=== PATIENT | female | born 1990 | race Caucasian/White ===

== ENCOUNTER 2018-06-08 13:48 | Emergency (ER) | payer SELFPAY ==
[2018-06-08 13:49] VITALS: BP 126/73; PULSE 100; RESP 17; TEMP 37.1; O2SAT 98; BMI 25.9
--- NOTE | 2018-06-08 14:30 | CT_ITS ---
STUDY: CT ABDOMEN AND PELVIS WITHOUT CONTRAST REASON FOR EXAM: Female, 28 years old. Right flank pain. RADIATION DOSAGE (If Supplied By Facility): CTDIvol = ( 7.41 ) mGy, DLP = ( 364.52 ) mGycm TECHNIQUE: Transaxial images were obtained from the dome of the diaphragm to the symphysis pubis without oral contrast, and without intravenous contrast. Sagittal and coronal images were reconstructed. Individualized dose optimization techniques were used for this CT. COMPARISON: None. FINDINGS: The visualized lung bases are unremarkable. The visualized portions of the heart are within normal limits. Please note the lack of intravenous contrast limits evaluation of solid visceral organs. Normal liver. Normal gallbladder and extrahepatic biliary system. Normal spleen. Normal pancreas. Normal bilateral adrenal glands. Normal right kidney. There is a nonobstructing 2.7 mm left renal calculus. Normal visualized stomach. Normal small intestine. Normal colon. The appendix is visualized and appears normal. Normal abdominal aorta. Normal inferior vena cava. Normal retroperitoneum. Normal urinary bladder. Normal abdominal wall. Normal osseous structures. CT/Abdomen/Pelvis without Cont IMPRESSION: No acute intra-abdominal process. Nonobstructing 2.7 mm left renal calculus. Electronically Signed: Chaparrita David MD at 16:13 EDT Tel , Service support ,
[2018-06-08] MEDS: 0.9% Normal Saline 1,000 ML 125 ML IV (14:41)
[2018-06-08 14:52] LABS: Absolute Lymphocyte Count 1.38 X10^3/ul (0.83-4.51); Absolute Neutrophil Count 6.4 X10^3/uL (2.0-7.7); Basophil# 0.02 X10^3/uL; Basophil% 0.2 % (0-1); Eosinophil# 0.19 X10^3/uL; Eosinophils% 2.2 % (0-5); Hematocrit 35.2 % (37-47); Hemoglobin 12.1 g/dl (12.0-15.0); Lymphocyte # 1.38 X10^3/ul (4.0); Lymphocyte % 15.7 % (19-41); Mean Corp Hgb Conc 34.4 g/gl (32-36); Mean Corpuscular Volume 90.3 fL (81-99); Mean Platelet Vol. 9.7 fl (6.2-12.0); Monocyte# 0.81 X10^3/uL; Monocyte% 9.2 % (0-10); Neutrophil # 6.39 X10^3/uL (2.7-7.7); Neutrophil % 72.5 % (47-70); Platelet Count 257 K/mm3 (150-450); RBC Distribution Width CV 12.5 % (11.6-14.6); RBC Distribution Width SD 41.1 fl (35.1-43.9); White Blood Count 8.8 K/mm3 (4.4-11.0)
[2018-06-08 14:56] LABS: POSITIVE COUNT NO; POSITIVE DIFFERENTIAL NO; POSITIVE MORPHOLOGY NO
[2018-06-08 15:08] LABS: ALB/GLOB Ratio 0.9 RATIO (0.9-2.4); AST(SGOT) 9 U/L (15-37); Alanine Aminotransfer ALT/SGPT 13 U/L (13-56); Albumin, Serum 3.7 g/dL (3.2-5.0); Alkaline Phosphatase 84 U/L (45-117); Anion Gap 3 (5-15); BUN 9 mg/dL (7-18); BUN/Creat Ratio 14.3 RATIO (10-20); Calcium,Total 8.6 mg/dL (8.5-10.1); Chloride 106 mmol/L (98-107); Creatinine, Serum 0.63 mg/dL (0.55-1.02); EST Glomerular Filtration Rate 118 mL/min (>60); Est Glom Filt Rate - Afr Amer 143 mL/min (>60); Estimated Creatinine Clearance 117.49 ml/min; Glucose 97 mg/dL (74-106); Lipase 59 U/L (73-393); Potassium 3.8 mmol/L (3.5-5.1); Protein, Total 7.7 g/dL (6.4-8.2); Sodium Level 136 mmol/L (136-145)
[2018-06-08 15:27] LABS: Internal QC Validated? YES +Cl - CLEAR BKGD; Pregnancy, Serum, hCG Quali. NEGATIVE Negative
[2018-06-08 15:30] LABS: Color, Urine Yellow (Yellow); Glucose, Dipstick Normal (Normal); Ketone-Dipstick 5 mg/dl (Negative); Leukocyte Esterase-Dipstick 100 /ul (Negative); Nitrite-Dipstick Negative (Negative); Occult Blood-Urine 25 /ul (Negative); Protein-Dipstick 15 mg/dl (Negative); Specific Gravity, Urine 1.015 (1.002-1.030); Urine Clarity Sl. Cloudy (Clear); Urine Urobilinogen Normal (Normal)
[2018-06-08 15:37] LABS: Urine Bilirubin Dipstick 1 mg/dL (Negative)
[2018-06-08 15:42] LABS: Bacteria RARE /hpf (None Seen); Red Blood Cells-Urine 0-5 SEEN /hpf (0-5); Squamous Epithelial Cells - UA 0-5 SEEN /hpf (5-10); White Blood Cells 5-10 SEEN /hpf (0-5)
[2018-06-08 15:43] LABS: Mucous, Urine RARE /hpf (<or=2+)
--- NOTE | 2018-06-08 16:45 | ED.DCSUM_ITS ---
- ER Visit Summary Date of Service: 06/08/18 Chief Complaint: [Right-sided abdominal pain and flank pain] History of Present Illness: The patient is a 28 F [presents to the ER with complaint of pain in her right side that initially started 5 days ago. Patient described initially as kind of a cramp in the right upper quadrant underneath her right ribs. Patient states the pain now seems to radiate more to her back. She has had no nausea or vomiting. She denies any fever. She has had no trauma. Patient denies urinary symptoms. Patient thinks the pain may be worse with deep breath and certain movements. Patient states she really cannot lay on her left side because it makes the right side hurt. She denies recent travel or surgery. She is not on oral contraceptives. Patient currently on her menstrual period.] Physical Examination: [HEENT-PERRLA, EOMI. Cranial nerves II through XII grossly intact. TMs clear. Mucous membranes moist. No adenopathy. Cardiovascular-regular rate and rhythm without murmur or ectopy Lungs-clear to auscultation, chest wall stable without crepitus or subcu emphysema Abdomen-normoactive bowel sounds, soft. Patient has some mild tenderness over the right upper quadrant as well as the right lower quadrant and diffusely about the abdomen. She has some mild CVA tenderness on the right. Patient does have some point tenderness over the right lower ribs that seems to reproduce her pain as well. Extremities-intact ?4, normal range of motion, normal pulses, atraumatic] Test Results: [CBC with a prolactin of 8.8, hemoglobin 12, hematocrit 35, placed 257. Chemistries unremarkable. LFTs were normal. Lipase is normal. Urinalysis was remarkable for a 100% esterase and 5-10 WBCs and rare bacteria. HCG was negative. CT flank showed a 2.7 mm left renal calculus otherwise nothing acute. The gallbladder was not seen as normal and appendix was normal.] Emergency Department Course and Treatment: [Patient did not want anything for pain initially. Patient advised use ibuprofen and I will give her a prescription for a few [place] for severe pain.] Treatment Plan: [Patient to follow-up with her primary care physician within next 3-5 days.] Disposition: [Discharged home in stable condition] Impression: [Abdominal pain-etiology uncertain Chest wall pain] This note was generated with Dragon dictation software. It may contain incorrect words, spelling, and punctuation that were not noted in review of the chart prior to signing ED Disposition - Plan for ED Patient: Referrals: Joe Villar MD [Primary Care Provider] -
--- NOTE | 2018-06-08 16:45 | ED.DEP ---
ED Disposition - Plan for ED Patient: Instructions: ED Flank Pain Uncertain Cause, ED Strain Chest Wall Prescriptions: Hydrocodone Bitart/Apap 5-325 [[place] 5MG-325MG] 1 tab PO Q4H PRN PRN 2 Days #10 tab PRN Reason: Pain Referrals: Joe Villar MD [Primary Care Provider] - 3-5 Days
[2018-06-08 16:53] VITALS: BP 117/82; PULSE 70; RESP 16; O2SAT 99
--- NOTE | 2018-06-08 16:53 | ED.RN ---
IV DC'ED, CATHETER INTACT, SMALL GAUZE DRESSING PLACED. DISCHARGE INSTRUCTIONS GIVEN TO AND REVIEWED WITH PATIENT, PATIENT DENIES QUESTIONS OR CONCERNS AND VOICES UNDERSTANDING OF DISCHARGE INSTRUCTIONS. PT AMBULATES OUT OF ROOM WITHOUT DIFFICULTY.
== END 2018-06-08 16:54 | disposition home or self-care (01) ==
LOC: ED 14:42
PROVIDERS: Emergency Provider Emergency Medicine; Family Provider Family Medicine; PCP Family Medicine
DX: R07.89 Other chest pain (principal); R10.84 Generalized abdominal pain; M54.9 Dorsalgia, unspecified
CPT/HCPCS: 74176; 80053; 81001; 83690; 84703; 85025; 96360; 96361; 99283; J7030; A4216

== ENCOUNTER 2018-06-12 11:57 | Emergency (ER) | payer SELFPAY ==
[2018-06-12 11:59] VITALS: BP 132/64; PULSE 105; RESP 17; TEMP 36.3; O2SAT 98; BMI 24.1
--- NOTE | 2018-06-12 12:49 | US_ITS ---
STUDY: ABDOMINAL ULTRASOUND - RIGHT UPPER QUADRANT REASON FOR VISIT: Female, 28 years old. Abdominal pain. TECHNIQUE: Ultrasound evaluation of the right upper quadrant was performed with real-time and static kingsley-scale imaging. TECHNICAL QUALITY: Adequate. COMPARISON: CT scan dated June 08, 2018. FINDINGS: Liver: The liver measures 16.7 cm. There is normal echogenicity of the liver. The bile ducts are within normal limits. There is hepatic color flow. The direction of portal flow is hepatopetal. There is no demonstrated mass lesion. Gallbladder: Normal distended gallbladder. The gallbladder wall measures 2.5 mm. There is a negative sonographic Oquendo's sign. There is no pericholecystic fluid. There are no gallstones. Common Bile Duct (C.B.D.): The common bile duct measures 3.7 mm. Pancreas: Normal size of the head, body and tail of the pancreas. There is normal echogenicity of the pancreas. There is no demonstrated pancreatic mass or cyst. Right Kidney: Normal size of the right kidney. The right kidney measures 13.2 cm. Minimal renal cortical thinning. The right cortex measures 0.9 cm. There is no demonstrated renal mass or cyst. There is no right hydronephrosis. Nonspecific increased echogenicity of the right renal pyramids/medullary region. US/Gallbladder IMPRESSION: No acute right upper quadrant sonographic findings Nonspecific right renal pyramid echogenicity (possible early medullary nephrocalcinosis; correlate urinalysis and consider urologic follow-up) Minimal renal cortical thinning Electronically Signed: Fred Velasquez DO at 14:41 EDT Tel , Service support ,
--- NOTE | 2018-06-12 13:01 | ED.VISSUMM ---
- ER Visit Summary Date of Service: 06/12/18 Chief Complaint: Right upper quadrant abdominal pain History of Present Illness: The patient is a 28 F who presents with right upper quadrant abdominal pain for the past week. Patient states the pain has been constant but worse after eating certain foods. Patient describes the pain is cramping and sharp at times. Patient states the pain is localized to the right upper quadrant. Patient states her pain improves when she lays down. Patient states she has been taking some Pepto-Bismol with no relief. Patient admits to nausea but denies any vomiting. Patient does admit to some black stools but denies any hematochezia or diarrhea. Patient denies any urinary complaints. Physical Examination: Vital signs are stable. Patient is afebrile. Patient is in no acute distress. Oral mucosa is pink and moist. Neck is supple. Trachea is midline. There is no JVD noted. Heart was regular rate and rhythm. Lungs are clear and equal bilateral. Abdomen is soft. Bowel sounds are normal. There is diffuse tenderness but worse over the right upper quadrant. There is a positive Oquendo sign. There is no guarding noted. Skin is warm dry. Cranial nerves II through XII are intact. There are no focal motor or sensory deficits noted. The remaining physical exam is within normal limits. Test Results: CBC, comprehensive metabolic profile were obtained and were normal. Urinalysis shows leukocyte esterase of 500 with 5-10 white blood cells and 0-5 epithelial cells and no bacteria. Right upper quadrant ultrasound was obtained. There are no acute findings noted. Emergency Department Course and Treatment: Patient was given injection of Toradol here. Patient felt better on reevaluation. Patient was instructed to follow-up with her primary care physician for further evaluation of her abdominal pain as an outpatient. Patient understood and was agreeable with the plan. All questions were answered. Disposition: Discharge home Impression: Right upper quadrant abdominal pain This note was generated with [employer] dictation software. It may contain incorrect words, spelling, and punctuation that were not noted in review of the chart prior to signing ED Disposition - Plan for ED Patient: Disposition: Home or Assisted Living Diagnosis: Right upper quadrant abdominal pain Instructions: ED Abdominal Pain Unkn Cause Referrals: NOT,DEFINED [NON-STAFF] - 3-5 Days
[2018-06-12 13:05] LABS: Absolute Lymphocyte Count 1.33 X10^3/ul (0.83-4.51); Absolute Neutrophil Count 6.9 X10^3/uL (2.0-7.7); Basophil# 0.02 X10^3/uL; Basophil% 0.2 % (0-1); Eosinophil# 0.13 X10^3/uL; Eosinophils% 1.4 % (0-5); Hematocrit 36.1 % (37-47); Hemoglobin 12.2 g/dl (12.0-15.0); Lymphocyte # 1.33 X10^3/ul (4.0); Lymphocyte % 14.7 % (19-41); Mean Corp Hgb Conc 33.8 g/gl (32-36); Mean Corpuscular Hgb 30.3 pg (27.0-32.0); Mean Corpuscular Volume 89.8 fL (81-99); Mean Platelet Vol. 10.2 fl (6.2-12.0); Monocyte# 0.65 X10^3/uL; Monocyte% 7.2 % (0-10); Neutrophil % 76.4 % (47-70); Platelet Count 335 K/mm3 (150-450); Red Blood Count 4.02 M/mm3 (4.2-5.4)
[2018-06-12 13:06] LABS: POSITIVE COUNT NO; POSITIVE DIFFERENTIAL NO; POSITIVE MORPHOLOGY NO
[2018-06-12 13:13] LABS: ALB/GLOB Ratio 0.7 RATIO (0.9-2.4); AST(SGOT) 21 U/L (15-37); Alanine Aminotransfer ALT/SGPT 27 U/L (13-56); Albumin, Serum 3.7 g/dL (3.2-5.0); Alkaline Phosphatase 117 U/L (45-117); Anion Gap 6 (5-15); BUN 11 mg/dL (7-18); BUN/Creat Ratio 15.5 RATIO (10-20); Calcium,Total 9.3 mg/dL (8.5-10.1); Chloride 102 mmol/L (98-107); Creatinine, Serum 0.71 mg/dL (0.55-1.02); EST Glomerular Filtration Rate 103 mL/min (>60); Est Glom Filt Rate - Afr Amer 125 mL/min (>60); Estimated Creatinine Clearance 104.25 ml/min; Globulin 5.4 g/dL (2.2-4.2); Glucose 88 mg/dL (74-106); Lipase 58 U/L (73-393); Potassium 3.8 mmol/L (3.5-5.1); Protein, Total 9.1 g/dL (6.4-8.2); Sodium Level 137 mmol/L (136-145)
[2018-06-12] MEDS: Ketorolac 30 MG/ML Syringe IV (14:29)
[2018-06-12 14:47] LABS: Bacteria 0 SEEN /hpf (None Seen); Red Blood Cells-Urine 0 SEEN /hpf (0-5)
[2018-06-12 14:49] LABS: Color, Urine Yellow (Yellow); Glucose, Dipstick Normal (Normal); Leukocyte Esterase-Dipstick 500 /ul (Negative); Nitrite-Dipstick Negative (Negative); Occult Blood-Urine 10 /ul (Negative); Protein-Dipstick 30 mg/dl (Negative); Specific Gravity, Urine 1.015 (1.002-1.030); Urine Bilirubin Dipstick 1 mg/dL (Negative); Urine Clarity Sl. Cloudy (Clear); Urine Urobilinogen 1 mg/dl (Normal); Urine pH 6.5 (5.0 - 8.0)
[2018-06-12 14:51] LABS: Ketone-Dipstick 150 mg/dl (Negative)
[2018-06-12 14:55] LABS: Mucous, Urine 3+ /hpf (<or=2+); Squamous Epithelial Cells - UA 0-5 SEEN /hpf (5-10); White Blood Cells 5-10 SEEN /hpf (0-5)
[2018-06-12 15:19] VITALS: BP 117/67; PULSE 87; RESP 18; O2SAT 98
== END 2018-06-12 15:20 | disposition home or self-care (01) ==
PROVIDERS: Emergency Provider Emergency Medicine
DX: R10.11 Right upper quadrant pain (principal); R11.0 Nausea; M54.9 Dorsalgia, unspecified; R19.5 Other fecal abnormalities
CPT/HCPCS: 76705; 80053; 81001; 82274; 83690; 85025; 96374; 99283

== ENCOUNTER 2019-01-10 22:16 | Emergency (ER) | payer MEDICAID, SELFPAY ==
[2019-01-10 22:17] VITALS: BP 135/84; PULSE 87; RESP 16; TEMP 36.5; O2SAT 97; BMI 21.6
[2019-01-10 22:42] VITALS: BP 135/84; PULSE 67; RESP 15; O2SAT 97
--- NOTE | 2019-01-10 22:43 | ED.VISSUMM ---
- ER Visit Summary Date of Service: 01/10/19 Chief Complaint: Pain History of Present Illness: The patient is a 28 F with dental pain for 2 weeks. Pain was worse today. She has been taking antibiotics for 4 days, but the pain is worsening. She has not seen denies fever or any other related symptoms. Physical Examination: Tooth #29 is fractured secondary to underlying decay. No focal abscess. No tongue elevation. No trismus. Airway intact. No lymphadenopathy. Good range of motion. No meningeal signs. Skin appears normal. Mouth and mucous membranes otherwise normal. Test Results: None indicated Emergency Department Course and Treatment: Patient was advised to continue taking antibiotics and follow-up with dental. Her prescription report did not show any active prescriptions. She has no history of drug abuse or other red flag features. She was given a 2-day course of [place]. Treatment Plan: As above Disposition: Discharge Impression: 1. Dental pain This note was generated with [employer] dictation software. It may contain incorrect words, spelling, and punctuation that were not noted in review of the chart prior to signing ED Disposition - Plan for ED Patient: Referrals: Care Physician,No Primary [Primary Care Provider] -
--- NOTE | 2019-01-10 22:44 | ED.DEP ---
ED Disposition - Plan for ED Patient: Instructions: Dental Pain Prescriptions: Hydrocodone Bitart/Apap 5-325 [[place] 5MG-325MG] 1 tab PO Q6H PRN PRN 2 Days #8 tab PRN Reason: Pain Prescription Printed Referrals: Care Physician,No Primary [Primary Care Provider] -
[2019-01-10] MEDS: HYDROcodone Bitartrate/Apap 5/325 Tablet PO (22:59)
== END 2019-01-10 23:02 | disposition home or self-care (01) ==
LOC: ED 22:47
PROVIDERS: Emergency Provider Emergency Medicine
DX: K08.89 Other specified disorders of teeth and supporting structures (principal); S02.5XXA Fracture of tooth (traumatic), initial encounter for closed fracture; X58.XXXA Exposure to other specified factors, initial encounter; Y93.9 Activity, unspecified; Y92.9 Unspecified place or not applicable; K02.9 Dental caries, unspecified; Z72.0 Tobacco use
CPT/HCPCS: 99283

== ENCOUNTER 2019-01-11 17:47 | Emergency (ER) | payer MEDICAID, SELFPAY ==
[2019-01-10 22:17] VITALS: BMI 21.6
[2019-01-11 17:48] VITALS: BP 135/92; PULSE 93; RESP 18; TEMP 37.4; O2SAT 98; BMI 21.3
[2019-01-11 18:39] VITALS: TEMP 36.4
--- NOTE | 2019-01-11 19:41 | CT_ITS ---
HISTORY: RIGHT LOWER JAW AND DENTAL PAIN, ON ATB CURRENTLY, HAS HAD ISSUES FOR 2 WEEKS, ATB X 5 DAYS, GETTING WORSE TECHNIQUE: Helically acquired images were obtained of the facial bones following the intravenous administration of 75ML ml of 75mL Isovue-370 IodinatedIV contrast. 2D reformats. A radiation dose optimization technique was used for this scan. COMPARISON: None FINDINGS: # of images incl. paperwork: 414 Paranasal sinuses are clear. Mastoid air cells are free of disease. No fractures are present. Orbits and globes are normal. Visualized portions of the upper cervical spine are normal. Soft tissue swelling is present over the right cheek and mandible. Directly adjacent to the bone there is a 16 x 6 x 9 mm abscess. There is a periapical abscess to the adjacent right mandibular premolar where the abscess has eroded through the lateral cortex of the bone into the abscess. The induration and cellulitis is present within the adjacent subcutaneous fat. This inflammation extends to the right submandibular gland with surrounding adenopathy. The airway remains widely patent. Visualized portions of the thyroid, left submandibular, and bilateral parotid glands appeared normal.. CT/Sinus/Facial Bone WITH Contras IMPRESSION: 16 x 6 x 9 mm abscess adjacent to the right side of the mandible where the root of the right mandibular premolar has eroded through the bone with a periapical abscess and the abscess is now extended into the adjacent soft tissues. Cellulitis within the right cheek and superficial soft tissues to the abscess extending to the skin with skin thickening. Individualized dose optimization techniques were used for this CT. at 2115 Reported and signed by: Rashawn Andrews MD Electronically Signed: Rashawn Andrews MD at 21:14 EST Tel , Service support ,
--- NOTE | 2019-01-11 19:43 | ED.VIS.DENTA ---
History of Present Illness Chief Complaint: Abscess Informant: Patient Onset: Yesterday Context: Gradual Onset Narrative: Patient is a 28-year-old female with no significant past medical history presenting with continued dental pain as well as right lower jaw swelling. Patient was placed on Augmentin 875 twice a day 5 days ago. States is been taking antibiotics but then yesterday started developing worsening pain and now swelling of her right lower jaw. She states is very uncomfortable but is able to swallow and lines breathe comfortably. She denies any drainage of pus. She does not follow-up with her dentist yet. She denies any other complaints at this time. She has no associated fever, chills, chest pain, shortness shortness of breath or difficulty opening and closing her mouth. Past Medical History - Allergies and Home Meds Allergies/Adverse Reactions: Allergies No Known Allergies Allergy (Verified 01/11/19 17:50) Primary Care Physician: Care Physician,No Primary [Primary Care Provider] - Past Medical History: None Surgical History: noncontributory Smoking Status: Current every day smoker Review of Systems General: Denies: Chills, Fever, Sweats Eyes: Denies: Visual changes - bilaterally, Diplopia ENT: Reports: - - right jaw swelling, facial pain . Denies: Rhinorrhea, Sore throat Cardiovascular: Denies: Chest pain, Palpitations Respiratory: Denies: Dyspnea, Cough, Dyspnea on exertion Gastrointestinal: Denies: Abdominal pain, Nausea, Vomiting, Diarrhea, Melena, Hematochezia Genitourinary: Denies: Dysuria, Hematuria, Frequency Musculoskeletal: Denies: Back pain, Extremity Pain Skin: Denies: Rash, Wounds Neurological: Denies: Headache, Weakness, Numbness Physical Exam Vital Signs/Narrative: Vital Signs Temp Pulse Resp BP Pulse Ox 01/11/19 18:39 97.6 F L 01/11/19 17:48 99.4 F H 93 18 135/92 H 98 Inital Vital Signs reviewed: Yes General: Well nourished, Well developed Head: Normocephalic, Atraumatic ENT: Moist mucous membranes, No rhinorrhea, TM's clear Mouth/Throat: Normal inspection lips/gums, Normal oral mucosa, No focal abscess, Widespread dental decay, - - swelling of right mandibular mucosa. Negative for: Trismus Neck: Supple, No lymphadenopathy, Nontender, No JVD Cardiovascular: Regular rate, Regular rhythm, No murmurs Respiratory: No distress, CTA bilaterally, Chest nontender Abdomen: Soft, Nontender, Nondistended, Normal bowel sounds Back: Nontender, Normal Inspection Extremities: Nontender, No edema Skin: Normal color, No rash Neurological: Alert, Oriented x3, Cranial nerves II-XII grossly intact, Normal Strength, Normal Sensation Psychological: Normal affect Diagnostic/Tx/Re-eval Clinical Impression(s) from Imaging Studies Facial/Sinus 01/11/19 19:41 IMPRESSION: 16 x 6 x 9 mm abscess adjacent to the right side of the mandible where the root of the right mandibular premolar has eroded through the bone with a periapical abscess and the abscess is now extended into the adjacent soft tissues. Cellulitis within the right cheek and superficial soft tissues to the abscess extending to the skin with skin thickening. Individualized dose optimization techniques were used for this CT. at 2115 Reported and signed by: Rashawn Andrews MD Electronically Signed: Rashawn Andrews MD at 21:14 EST Tel , Service support , Laboratory Data 01/11/19 01/11/19 20:06 20:06 WBC 12.8 H RBC 4.35 Hgb 13.7 Hct 40.8 MCV 93.8 MCH 31.5 MCHC 33.6 RDW Std Deviation 40.6 RDW Coeff of Javi 11.8 Plt Count 280 MPV 10.0 Immature Gran % (Auto) 0.300 Neut % (Auto) 71.4 H Lymph % (Auto) 19.6 [place] % (Auto) 7.0 Eos % (Auto) 1.3 Baso % (Auto) 0.4 Absolute Neuts (auto) 9.2 H Absolute Lymphs (auto) 2.52 Nucleated RBC % 0 Sodium 139 Potassium 4.6 Chloride 107 Carbon Dioxide 27.0 Anion Gap 5 BUN 20 H Creatinine 0.82 Estim Creat Clear Calc 90.27 Est GFR (MDRD) Af Amer 104 Est GFR (MDRD) Non-Af 86 BUN/Creatinine Ratio 24.3 H Glucose 108 H Calcium 9.0 - Medical Decision Making Dental Procedures: - - I&D-11 blade used to make a stab incision in front of mucosa of the second premolar where CT shows a periapical abscess. No purulent drainage expressed. Patient tolerated procedure well with mild amount of bleeding. Regional and Local Dental Anesthesia: Marcaine, Local Supraperiosteal Dental Injection, Right Inferior Alveolar Nerve Block Patient has continued pain and swelling of her right lower jaw. She is been on 5 days of Augmentin. She will be switched to clindamycin. CT of the face with IV contrast does show a 1 cm well-defined periapical abscess in the affected area. Incision and drainage was attempted in that area. No pus pocket is expressed. Patient is given a dose of morphine as well as a dose of clindamycin prior to discharge. She has pain medication at home. She is counseled follow-up with dentist. She is counseled on signs symptoms of heart return to emergency room. She is counseled that she might need to return the emergency room for an I&D if this further develops. Patient is counseled on signs and symptoms requiring return to the emergency room. Patient verbalizes agreement and understand this plan. Patient discharged home in stable and improved condition. ED Disposition - Plan for ED Patient: Disposition: Home or Assisted Living Instructions: DENTAL ABSCESS w/ Facial Cellulitis Prescriptions: Clindamycin [Cleocin] 450 mg PO 4X/DAY #84 cap Prescription Printed Referrals: Care Physician,No Primary [Primary Care Provider] - Additional Instructions: Return if you have worsening symptoms. Take pain medications at home. Start taking the new antibiotic in the morning. You are given first dose here tonight. You can stop taking the prior antibiotic, amoxicillin. Please stop smoking/vaping. Call the office tomorrow to arrange quick follow-up.
[2019-01-11 20:07] VITALS: BP 134/66; PULSE 72; RESP 15; TEMP 36.6; O2SAT 98
[2019-01-11 20:19] LABS: Absolute Lymphocyte Count 2.52 X10^3/uL (0.83-4.51); Absolute Neutrophil Count 9.2 X10^3/uL (2.0-7.7); Basophil# 0.05 X10^3/uL; Basophil% 0.4 % (0-1); Eosinophil# 0.17 X10^3/uL; Eosinophils% 1.3 % (0-5); Hematocrit 40.8 % (37-47); Hemoglobin 13.7 g/dL (12.0-15.0); Lymphocyte # 2.52 X10^3/ul (4.0); Lymphocyte % 19.6 % (19-41); Mean Corp Hgb Conc 33.6 g/dL (32-36); Mean Corpuscular Hgb 31.5 pg (27.0-32.0); Mean Corpuscular Volume 93.8 fL (81-99); NRBC Flagged by Analyzer 0 % (0-5); Neutrophil # 9.15 X10^3/uL (2.7-7.7); Neutrophil % 71.4 % (47-70); Platelet Count 280 K/mm3 (150-450); RBC Distribution Width CV 11.8 % (11.6-14.6); RBC Distribution Width SD 40.6 fl (35.1-43.9); Red Blood Count 4.35 M/mm3 (4.2-5.4); White Blood Count 12.8 K/mm3 (4.4-11.0)
[2019-01-11 20:37] LABS: Anion Gap 5 (5-15); BUN 20 mg/dL (7-18); BUN/Creat Ratio 24.3 RATIO (10-20); Chloride 107 mmol/L (98-107); Creatinine, Serum 0.82 mg/dL (0.55-1.02); EST Glomerular Filtration Rate 86 mL/min (>60); Est Glom Filt Rate - Afr Amer 104 mL/min (>60); Estimated Creatinine Clearance 90.27 ml/min; Glucose 108 mg/dL (74-106); Potassium 4.6 mmol/L (3.5-5.1); Sodium Level 139 mmol/L (136-145)
[2019-01-11 21:19] VITALS: BP 126/74; PULSE 76; RESP 15; TEMP 36.4; O2SAT 98
[2019-01-11] MEDS: Bupivacaine 0.5%/Epi 1.8 ML Syringe INFILT (22:03)
[2019-01-11] MEDS: Clindamycin HCl 150 MG Capsule 300 MG PO (22:03)
[2019-01-11] MEDS: Morphine 4 MG/ML Syringe IV (22:25)
[2019-01-11 22:56] VITALS: BP 125/64; PULSE 71; RESP 15; O2SAT 98
== END 2019-01-11 22:57 | disposition home or self-care (01) ==
PROVIDERS: Emergency Provider Emergency Medicine
DX: K04.7 Periapical abscess without sinus (principal); K12.2 Cellulitis and abscess of mouth; F17.200 Nicotine dependence, unspecified, uncomplicated
CPT/HCPCS: 41800; 70487; 80048; 85025; 96374; 99283; Q9967; A4216